=== PATIENT | female | born 1965 | race African-American/Black ===

== ENCOUNTER 2021-06-06 07:16 | Emergency (ER) | payer MEDICAID ==
[~2021-06-06] VITALS: Ht 160 cm; Wt 77.0 kg
[2021-06-06 07:24] VITALS: BP 140/84
[2021-06-06] MEDS ORDERED: ERYT1OIN6 EACHEYE (07:41)
== END 2021-06-06 08:00 | disposition home or self-care (01) ==
LOC: ER 07:16
DX: H10.31 Unspecified acute conjunctivitis, right eye (principal)
CPT/HCPCS: 99283

== ENCOUNTER 2021-09-18 19:33 | Emergency (ER) | payer MEDICAID, OTHER ==
[~2021-09-18] VITALS: Ht 160 cm; Wt 83.0 kg
[~2021-09-18 19:33] MED LIST: ERYT1OIN6 EACHEYE
[2021-09-18] MEDS ORDERED: ACETAMINOPHEN 325MG TABLET PO STA (20:45)
[2021-09-18 21:10] VITALS: BP 132/81
[2021-09-18 21:43] LABS: BASOPHILS % 1.2 % (0.0-2.0); EOSINOPHILS % 2.6 % (0.0-5.0); HEMATOCRIT. 36.2 % (36.0-48.0); HEMOGLOBIN. 12.8 g/dL (12.0-16.0); LYMPHOCYTES % 36.1 % (20.0-50.0); MEAN CORPUSCULAR HEMOGLOBIN 29.4 pg (28.0-32.0); MEAN CORPUSCULAR VOLUME 83.3 fL (81.0-99.0); MONOCYTES % 7.3 % (2.0-8.0); NEUTROPHILS % 52.8 % (40.0-76.0); PLATELET 252 x1000/uL (130-400); RED BLOOD CELL COUNT 4.35 mill/uL (4.2-5.4); RED CELL DISTRIBUTION WIDTH 14.5 % (11.6-14.6)
[2021-09-18 21:49] LABS: CHLORIDE 111 mEq/L (98-107)
[2021-09-18 22:03] LABS: CLARITY URINE CLEAR (CLEAR); COLOR URINE YELLOW (YELLOW); KETONES URINE TRACE (NEGATIVE); LEUKOCYTE ESTERASE URINE TRACE (NEGATIVE); NITRITE URINE NEGATIVE (NEGATIVE); OCCULT BLOOD URINE NEGATIVE (NEGATIVE); PH URINE 5.5 (4.5-8.0); PROTEIN URINE NEGATIVE (NEGATIVE); SPECIFIC GRAVITY URINE 1.027 (1.005-1.030)
[2021-09-18] MEDS ORDERED: IBUP-2028 MT (22:40)
[2021-09-18] MEDS ORDERED: CEPH500C2 MT (22:40)
[2021-09-18] MEDS ORDERED: CEPH500T MT (23:34)
[2021-09-19] MEDS ORDERED: CEPH500C2 MT (10:40)
== END 2021-09-18 23:51 | disposition home or self-care (01) ==
LOC: ER 19:33
DX: N39.0 Urinary tract infection, site not specified (principal)
CPT/HCPCS: 36415; 72100; 80053; 81003; 85025; 99284

== ENCOUNTER 2022-06-28 15:53 | Emergency (ER) | payer OTHER ==
[~2022-06-28] VITALS: Ht 160 cm; Wt 83.0 kg
[~2022-06-28 15:53] MED LIST changes: +CEPH500C2 MT; +CEPH500T MT; +IBUP-2028 MT
[2022-06-28] MEDS ORDERED: METH-653 MT (21:12)
[2022-06-28] MEDS ORDERED: IBUP-2029 MT (21:12)
[2022-06-28 21:31] VITALS: BP 120/72
== END 2022-06-28 21:32 | disposition home or self-care (01) ==
LOC: ER 15:53
DX: S39.012A Strain of muscle, fascia and tendon of lower back, initial encounter (principal); V49.49XA Driver injured in collision with other motor vehicles in traffic accident, initial encounter; Y93.89 Activity, other specified; Y92.89 Other specified places as the place of occurrence of the external cause; Y99.8 Other external cause status; Z79.899 Other long term (current) drug therapy
CPT/HCPCS: 72100; 99283

== ENCOUNTER 2024-02-23 10:30 | Emergency (ER) | payer OTHER ==
[~2024-02-23] VITALS: Ht 162.6 cm; Wt 91.0 kg
[~2024-02-23 10:30] MED LIST changes: +IBUP-2029 MT; +METH-653 MT
[2024-02-23 10:49] VITALS: TEMP 98.6; O2SAT 98
[2024-02-23 11:21] LABS: DIFFERENTIAL COMMENT 0; EOSINOPHILS % 2.8 % (0.0-5.0); HEMATOCRIT. 40.4 % (36.0-48.0); HEMOGLOBIN. 13.6 g/dL (12.0-16.0); LYMPHOCYTES % 39.8 % (20.0-50.0); MEAN CORPUSCULAR HEMOGLOBIN 28.9 pg (28.0-32.0); MEAN CORPUSCULAR HGB CONC 33.6 g/dL (31.0-37.0); MEAN CORPUSCULAR VOLUME 85.9 fL (81.0-99.0); MEAN PLATELET VOLUME 9.9 fl (7.4-10.4); MONOCYTES % 6.5 % (2.0-8.0); NEUTROPHILS % 49.9 % (40.0-76.0); PLATELET 260 x1000/uL (130-400); RED BLOOD CELL COUNT 4.71 mill/uL (4.2-5.4); WHITE BLOOD COUNT 5.5 x1000/uL (4.5-11.0)
[2024-02-23 11:27] LABS: CLARITY URINE CLEAR (CLEAR); COLOR URINE YELLOW (YELLOW); GLUCOSE URINE NEGATIVE (NEGATIVE); KETONES URINE NEGATIVE (NEGATIVE); LEUKOCYTE ESTERASE URINE NEGATIVE (NEGATIVE); NITRITE URINE NEGATIVE (NEGATIVE); OCCULT BLOOD URINE NEGATIVE (NEGATIVE); PROTEIN URINE NEGATIVE (NEGATIVE); UROBILINOGEN URINE 0.2 E.U./dL (0.2-1.0)
[2024-02-23 11:34] LABS: CHLORIDE 109 mEq/L (98-107); POTASSIUM 3.6 mEq/L (3.5-5.1); SODIUM 142 mEq/L (136-145)
[2024-02-23 11:35] LABS: CALCIUM 9.3 mg/dL (8.7-10.4); CARBON DIOXIDE 30 mEq/L (21-32)
[2024-02-23 11:40] LABS: CREATININE 0.7 mg/dL (0.6-1.0); GLUCOSE 89 mg/dL (70-105)
[2024-02-23 11:41] LABS: UREA NITROGEN BLOOD 12 mg/dL (9-23)
[2024-02-23 11:42] LABS: ALANINE AMINOTRANSFERASE 13 IU/L (10-49); ALBUMIN 4.2 g/dL (3.2-4.8); ASPARTATE AMINOTRANSFERASE 14 IU/L (<34)
[2024-02-23 11:43] LABS: BILIRUBIN DIRECT 0.2 mg/dL (<=3.0); BILIRUBIN TOTAL 0.8 mg/dL (0.1-1.0); PROTEIN TOTAL 7.3 g/dL (6.0-8.3)
[2024-02-23 15:27] VITALS: BP 138/72; PULSE 69; RESP 15
== END 2024-02-23 15:29 | disposition home or self-care (01) ==
LOC: ER 10:30
DX: R10.84 Generalized abdominal pain (principal)
CPT/HCPCS: 36415; 74176; 80048; 80076; 81003; 85025; 86850; 86900; 99284

== ENCOUNTER 2025-03-27 05:42 | Emergency (ER) | payer OTHER ==
[~2025-03-27] VITALS: Ht 160 cm; Wt 86.4 kg
[~2025-03-27 05:42] MED LIST changes: +IBUP-1455 MT; -IBUP-2029 MT
[2025-03-27 05:52] VITALS: O2SAT 100
[2025-03-27] MEDS: KETOROLAC 30MG/ML VIAL IM ONE (06:57)
[2025-03-27] MEDS ORDERED: BROM118S47 PO (07:44)
[2025-03-27] MEDS ORDERED: ALBU90AE INH (07:44)
[2025-03-27] MEDS ORDERED: IBUP-1455 MT (07:44)
[2025-03-27 09:19] VITALS: BP 148/76; PULSE 61; RESP 18; TEMP 36.8; O2SAT 100
== END 2025-03-27 09:40 | disposition home or self-care (01) ==
LOC: ER 05:42
DX: J06.9 Acute upper respiratory infection, unspecified (principal); Z79.899 Other long term (current) drug therapy
CPT/HCPCS: 99283; 71045; 96372; J1885